=== PATIENT | male | born 1970 | race Caucasian/White ===

== ENCOUNTER → 2020-01-03 | Outpatient (CLI) | payer BC ==
[2020-01-03 16:47] LABS: FREE T4 0.97 NG/DL (0.76-1.46); FREE THYROXINE INDEX 2.9 % (1.4-3.8); THYROID STIMULATING HORMONE 1.09 uIU/ML (0.358-3.740); THYROXINE (T4) 8.7 UG/DL (4.5-12.0); TOTAL T3 96.9 NG/DL (60.0-181.0)
== END ==
LOC: M WUC 14:44
PROVIDERS: ATTEND Ophthalmology
DX: H16.223 Keratoconjunctivitis sicca, not specified as Sjogren's, bilateral (principal)

== ENCOUNTER → 2024-11-23 | Outpatient (CLI) | payer OTHER | LOC: M CARPUL 14:32 | PROVIDERS: ATTEND Physician Assistant | DX: R94.31 Abnormal electrocardiogram [ECG] [EKG] (principal); Z91.89 Other specified personal risk factors, not elsewhere classified ==